=== PATIENT | female | born 1955 | race Caucasian/White ===

== ENCOUNTER 2018-03-12 15:34 | Outpatient (CLI) | payer OTHER ==
--- NOTE | 2018-03-12 20:40 | RAD ---
CHEST 2 VIEWS: Date: 03/12/18 Comparison is made with the 03/18/16 study. FINDINGS: There is minimal change in the interval. There is a very minor amount of linear streaking near the le ft costophrenic angle, but I see some of this on the 2016 study. Overall, there are no lobar infiltra racquel, effusions, or dramatic changes since the prior exam. The heart is normal in size. There is no va scular congestion or edema. IMPRESSION: No acute findings. POS: HOME
== END 2018-03-12 15:35 | disposition home or self-care (01) ==
LOC: BURRAD 15:34
PROVIDERS: ATTEND Family Medicine
DX: R05 Cough (principal)
CPT/HCPCS: 71046

== ENCOUNTER 2018-12-24 13:26 | Outpatient (CLI) | payer OTHER ==
--- NOTE | 2018-12-25 07:35 | ULT ---
RIGHT AXILLA SOFT TISSUE ULTRASOUND: 12/24/18 Survey scanning of the area around the axilla, including the areas of pain, was obtained. No mass, cysts, or other focal pathology was seen. IMPRESSION: Normal exam. POS: HOME
== END 2018-12-24 13:27 | disposition home or self-care (01) ==
LOC: BURULT 13:26
PROVIDERS: ATTEND Family Medicine
DX: M79.621 Pain in right upper arm (principal)
CPT/HCPCS: 76999

== ENCOUNTER 2019-01-25 10:04 | Outpatient (CLI) | payer OTHER ==
--- NOTE | 2019-01-25 14:47 | RAD ---
CERVICAL SPINE 5 VIEWS: Date: 01/25/19 No fracture seen, though C7 is seen poorly. There is disc space narrowing at C5-C6 and possibly C6-C7 . Osteophytes are present at the C5-6 level. There appears to be some slight right foraminal narrowin g at C5-C6. Given the patient's symptoms, she might benefit from a MRI. There is loss of the normal c ervical lordosis. The soft tissues are normal in thickness. IMPRESSION: Degenerative disc changes at at least C5-C6 and possibly C6-C7. Probable mild right foraminal narrowi ng at C5-C6. POS: HOME
== END 2019-01-25 10:05 | disposition home or self-care (01) ==
LOC: BURRAD 10:04
PROVIDERS: ATTEND Family Medicine
DX: M50.122 Cervical disc disorder at C5-C6 level with radiculopathy (principal)
CPT/HCPCS: 72050

== ENCOUNTER 2019-05-06 15:10 | Outpatient (CLI) | payer OTHER ==
--- NOTE | 2019-05-06 20:14 | RAD ---
CHEST TWO VIEWS: 05/06/19 Comparison is made with the prior study of 03/12/18. The heart is normal in size. No major lobar infiltrate or effusion was seen. Some of the lung marking s in the right base and in the periphery of the left base seen marginally prominent. I still do not b elieve they are much different than before. The mediastinum was unremarkable. The bony structures ruby wed no acute change. IMPRESSION: No acute thoracic findings. POS: HOME
== END 2019-05-06 15:11 | disposition home or self-care (01) ==
LOC: BUREKG 15:10
PROVIDERS: ATTEND Family Medicine
DX: Z01.818 Encounter for other preprocedural examination (principal)
CPT/HCPCS: 71046; 93005; 93010

== ENCOUNTER 2019-08-20 12:07 | Outpatient (CLI) | payer OTHER ==
--- NOTE | 2019-08-20 14:49 | RAD ---
CERVICAL SPINE 2 VIEWS: INDICATION: History of cervical radiculopathy. FINDINGS: With flexion there is no minimal anterior translational motion of C2 on C3. This reduces with extens ion. ACDF is present from C3 through C5 without overt evidence of complication. IMPRESSION: Minimal anterior translation of C2 on C3 with flexion. POS: [facility]
== END 2019-08-20 12:08 | disposition home or self-care (01) ==
LOC: BURRAD 12:07
DX: M50.10 Cervical disc disorder with radiculopathy, unspecified cervical region (principal); R20.0 Anesthesia of skin; R20.2 Paresthesia of skin; M53.82 Other specified dorsopathies, cervical region
CPT/HCPCS: 72040

== ENCOUNTER 2019-10-27 10:21 | Outpatient (CLI) | payer OTHER ==
--- NOTE | 2019-10-27 18:36 | RAD ---
CHEST TWO VIEWS: 10/27/19 COMPARISON: Comparison is made with the 05/06/19 study. The heart is normal in size. No acute infiltrates were appreciated. Minor haziness in the right cardi ophrenic angle and lingula seem little different than before. Some mild scoliosis was noted. There ar e no effusions. IMPRESSION: No acute thoracic findings. POS: HOME
== END 2019-10-27 10:22 | disposition home or self-care (01) ==
LOC: BURRAD 10:21
PROVIDERS: ATTEND Family Medicine
DX: R05 Cough (principal)
CPT/HCPCS: 71046

== ENCOUNTER 2020-01-11 11:09 | Outpatient (CLI) | payer OTHER ==
--- NOTE | 2020-01-11 13:47 | RAD ---
CHEST 2 VIEWS: Date: 01/11/2020 The heart is normal in size. The lungs are clear. No infiltrate or effusion seen. The left hemidiaphr agm is slightly higher than the right, which is a normal situation in this particular patient. There are no acute bony changes. The mediastinum appears normal. IMPRESSION: No acute findings. POS: HOME
== END 2020-01-11 11:10 | disposition home or self-care (01) ==
LOC: BURRAD 11:09
PROVIDERS: ATTEND Registered Nurse Community Health
DX: R05 Cough (principal)
CPT/HCPCS: 71046

== ENCOUNTER 2020-07-11 13:51 | Outpatient (CLI) | payer BC | END 2020-07-11 13:52 | disposition home or self-care (01) | LOC: BURRAD 13:51 | DX: M50.30 Other cervical disc degeneration, unspecified cervical region (principal); Z98.1 Arthrodesis status | CPT/HCPCS: 72040 ==

== ENCOUNTER 2021-07-21 20:29 | Emergency (ER) | payer BC, MEDICARE ==
[2021-07-21] MEDS ORDERED: Acetaminophen/Codeine 30-300mg Tablet ONE (20:47)
[2021-07-21] MEDS ORDERED: Lidocaine 4% Cream 5 GM TUBE w/ Tegaderm ONE (21:01)
[2021-07-21] MEDS ORDERED: Boostrix 0.5 ML (Tdap) VIAL ONE (21:01)
[2021-07-21] MEDS ORDERED: Bacitracin 1 PK ONE (21:57)
== END 2021-07-21 22:22 | disposition home or self-care (01) ==
LOC: BURERS 20:29
DX: S01.01XA Laceration without foreign body of scalp, initial encounter (principal); S52.502A Unspecified fracture of the lower end of left radius, initial encounter for closed fracture; S80.212A Abrasion, left knee, initial encounter; M54.2 Cervicalgia; I10 Essential (primary) hypertension; Z23 Encounter for immunization; W17.89XA Other fall from one level to another, initial encounter; W22.8XXA Striking against or struck by other objects, initial encounter
CPT/HCPCS: 12001; 29125; 90471; 90715

== ENCOUNTER 2023-04-29 08:59 | Emergency (ER) | payer MEDICARE ==
[2023-04-29] MEDS ORDERED: Ipratropium/Albuterol 3 ML NEB ONE (09:24)
[2023-04-29] MEDS ORDERED: Acetaminophen/Codeine 30-300mg Tablet ONE ×2 (09:25→09:28)
== END 2023-04-29 09:58 | disposition home or self-care (01) ==
LOC: BURERS 08:59
DX: J20.9 Acute bronchitis, unspecified (principal); I10 Essential (primary) hypertension
CPT/HCPCS: 71046; J7620